=== PATIENT | male | born 1985 | race Caucasian/White ===

== ENCOUNTER 2019-12-11 08:52 | Emergency (ER) | payer OTHER ==
[2019-12-11] MEDS ORDERED: Lidocaine 1% MPF 5 ML VIAL INJ ONE (10:00)
[2019-12-11 11:17] VITALS: BP 134/88
== END 2019-12-11 11:16 | disposition home or self-care (01) ==
LOC: UCCORT 08:52

== ENCOUNTER 2019-12-12 14:17 | Emergency (ER) | payer OTHER ==
[2019-12-12 14:28] VITALS: BP 127/81
== END 2019-12-12 15:05 | disposition home or self-care (01) ==
LOC: UCCORT 14:17